=== PATIENT | female | born 1960 | race Caucasian/White ===

== ENCOUNTER 2018-10-14 08:33 | Outpatient (CLI) | payer OTHER | END 2018-10-14 08:37 | disposition home or self-care (01) | LOC: RX STUDY 08:33 | DX: K22.10 Ulcer of esophagus without bleeding (principal); R13.13 Dysphagia, pharyngeal phase ==

== ENCOUNTER 2018-11-05 08:17 | Outpatient (CLI) | payer OTHER | END 2018-11-05 08:21 | disposition home or self-care (01) | LOC: MRI 08:17 | DX: R13.13 Dysphagia, pharyngeal phase (principal); K22.10 Ulcer of esophagus without bleeding; M54.5 Low back pain ==

== ENCOUNTER 2020-06-19 05:53 | Day surgery (SDC) | payer OTHER | END 2020-06-19 13:05 | disposition home or self-care (01) | LOC: CIR.AMB 05:53 | PROVIDERS: ATTEND Surgery | DX: K80.10 Calculus of gallbladder with chronic cholecystitis without obstruction (principal); Z20.822 Contact with and (suspected) exposure to COVID-19 ==